=== PATIENT | female | born 1975 | race Hispanic/Latino ===

== ENCOUNTER 2021-06-27 15:01 | Emergency (ER) | payer SELFPAY | END 2021-06-27 16:30 | disposition home or self-care (01) | LOC: BURERS 15:01 | DX: S62.522A Displaced fracture of distal phalanx of left thumb, initial encounter for closed fracture (principal); W22.03XA Walked into furniture, initial encounter; Y92.89 Other specified places as the place of occurrence of the external cause; Y99.0 Civilian activity done for income or pay | CPT/HCPCS: 26750 ==